=== PATIENT | female | born 1955 | race African-American/Black ===

== ENCOUNTER → 2018-11-09 10:57 | Outpatient (CLI) | payer OTHER, SELFPAY ==
--- NOTE | 2018-11-09 11:01 | MM_ITS ---
MM Dig screening mamm BI w/CAD CAD Screening COMPARISON: Digital mammograms with CAD 11/06/2017 and 11/04/2016 INDICATION: There is no personal or family history of breast cancer TECHNIQUE: Standard CC and MLO images were obtained. R2 CAD reviewed. FINDINGS: The breasts are composed primarily of fat with scattered fibroglandular densities throughout each breast. Due to the large size additional views of each breast were obtained. Again is a tiny asymmetric benign-appearing nodular density left breast. There is no new or suspicious lesion in either breast and there are no suspicious microcalcifications. IMPRESSION: Stable exam no suspicious lesion seen BI-RADS Category: 2 Benign Finding(s) RECOMMENDED FOLLOW-UP: 1YR - 1 YEAR FOLLOW-UP (A letter has been sent to the patient regarding results of the study.)
== END ==
PROVIDERS: PCP Family Medicine; Visit Provider Obstetrics & Gynecology
DX: Z12.31 Encounter for screening mammogram for malignant neoplasm of breast (principal)
CPT/HCPCS: 77067

== ENCOUNTER → 2019-05-28 14:06 | Outpatient (POV) | payer OTHER, SELFPAY | PROVIDERS: Visit Provider Dermatology | DX: Z00.00 Encounter for general adult medical examination without abnormal findings (principal) ==

== ENCOUNTER → 2019-11-11 09:47 | Outpatient (CLI) | payer OTHER, SELFPAY ==
--- NOTE | 2019-11-11 09:48 | MM_ITS ---
PROCEDURE: MM DIG SCREENING MAMM BI W/CAD Patient Age:64Y CLINICAL INDICATION: screening mammogram. Receives hormone shot. No new complaints. Noncontributory family history. . COMPARISON: [facility] DIG MAMM-SCREEN LOBO from 11/02/2015 [facility] DIG MAMM-SCREEN LOBO from 11/04/2016 [facility] DIG MAMM-SCREEN LOBO W/CAD from 11/06/2017 [facility] MM Dig screening mamm BI w/CAD from 11/09/2018 TECHNIQUE: Standard CC and MLO images were obtained. R2 CAD reviewed. Additional CC and MLO views bilateral a included so as to fully image and accommodate the entire breast-due to the generous volume breast bilaterally the the the of the who FINDINGS: Large volume low-density breasts bilateral.. The low-density breast with generalized fatty replacement; minimal residual fibroglandular elements. No significant change. No dominant mass or suspicious densities period. No suspicious calcifications no new areas of concern. IMPRESSION: Stable bilateral mammogram Bilateral follow-up 1 year Diffuse low-density large volume breast with diffuse fatty replacement. BI-RAD Category: 1 Negative FOLLOW-UP: 1YR 1 Year Follow-up (A letter has been sent to the patient regarding results of the study.) Dictated by: Isaías Bush MD 11/14/2019 08:18 Electronically signed by Isaías Bush MD in [place] 11/14/2019 08:18
== END ==
PROVIDERS: PCP Family Medicine; Visit Provider Obstetrics & Gynecology
DX: Z12.31 Encounter for screening mammogram for malignant neoplasm of breast (principal)
CPT/HCPCS: 77067

== ENCOUNTER → 2020-09-15 10:58 | Outpatient (CLI) | payer MEDICARE, SELFPAY ==
--- NOTE | 2020-09-15 11:06 | FL_ITS ---
PROCEDURE: FL BARIUM SWALLOW CLINICAL INDICATION: DIFFICULTY IN SWALLOWING COMPARISON: No exams were available for comparison TECHNIQUE: In the upright position the patient was observed to swallow barium in both the AP and lateral view. The cervical esophagus was examined under fluoroscopy with images obtained. The patient was then placed prone in the right anterior oblique position and was observed to swallow barium with Valsalva technique . FLUOROSCOPY TIME: 1 minutes and 30 seconds FINDINGS: There was no evidence of aspiration. There was normal peristalsis. Anterior osteophytes are present at C4-C5 and C6 causing some mild posterior indentation upon the esophagus. There is a small hiatal hernia. No annular constricting lesions are evident. There is some mucosal irregularity of the distal aspect of the esophagus which could be due to mild ulceration. Upper endoscopy may confirm. IMPRESSION: 1. Mild indentation upon the cervical esophagus posteriorly by cervical osteophytes. 2. Small hiatal hernia. 3. Mild mucosal irregularity of the distal esophagus possibly due to small ulcerations. Upper endoscopy may confirm. Follow-up suggested Dictated by: Rush Pablo MD 09/16/2020 10:24 Rush Pablo MD in [place] 09/16/2020 10:24
== END ==
PROVIDERS: PCP Family Medicine; Visit Provider Family Medicine
DX: R13.10 Dysphagia, unspecified (principal)
CPT/HCPCS: 74220

== ENCOUNTER → 2020-11-19 08:16 | Outpatient (CLI) | payer MEDICARE, SELFPAY ==
--- NOTE | 2020-11-19 08:16 | MM_ITS ---
PROCEDURE: MM DIG SCREENING MAMM BI W/CAD Digital Breast Tomosynthesis Included CLINICAL INDICATION: Routine Screening Mammogram There is no personal or family history of breast cancer. COMPARISON: MG [facility] DIG MAMM-SCREEN LOBO W/CAD from 11/06/2017 MG [facility] MM Dig screening mamm BI w/CAD from 11/09/2018 MG MM DIG SCREENING MAMM BI W/CAD from 11/11/2019 TECHNIQUE: Standard CC and MLO images and 3D Tomosynthesis was obtained. R2 CAD reviewed. FINDINGS: Scattered fibroglandular densities are seen throughout both breasts. There is a benign-appearing calcification right breast. There is no suspicious lesion in either breast and no suspicious microcalcifications. IMPRESSION: Fibrofatty parenchyma with no suspicious lesions seen BI-RAD Category: 2 Benign Finding(s) FOLLOW-UP: 1YR 1 Year Follow-up (A letter has been sent to the patient regarding results of the study.) Dictated by: Dr. Faustino Bright MD 11/21/2020 09:47 Dr. Faustino Bright MD in [place] 11/21/2020 09:47
== END ==
PROVIDERS: PCP Family Medicine; Visit Provider Obstetrics & Gynecology
DX: Z12.31 Encounter for screening mammogram for malignant neoplasm of breast (principal)
CPT/HCPCS: 77063; 77067

== ENCOUNTER → 2021-06-30 12:43 | Outpatient (CLI) | payer MEDICARE, SELFPAY ==
--- NOTE | 2021-06-30 12:47 | MR_ITS ---
PROCEDURE: MR HEAD/BRAIN WO/W CON CLINICAL INDICATION: HX OF SEIZURES COMPARISON: No exams were available for comparison TECHNIQUE: Routine multiplanar multi echo sequences are performed without and with gadolinium enhancement. FINDINGS: No restricted diffusion. No evidence of acute infarction. No midline shift mass effect, intracranial hemorrhage, or hydrocephalus. The cerebellopontine angles, cerebellum, and brainstem have an unremarkable appearance. No enhancing lesions. No abnormal white matter signal intensity. The hippocampal gyri are unremarkable in the temporal horns are symmetric. The pituitary, optic chiasm, corpus callosum, and craniocervical junction have an unremarkable appearance. Small amount fluid is present in the right mastoid sinus with a few air-fluid levels in the air cells. There is mucosal thickening along the floor the right maxillary sinus and to lesser degree on the left. No paranasal sinus air-fluid levels. There is mild right ethmoid mucosal thickening with an opacified right frontal ethmoid air cell. Unremarkable appearing orbits. IMPRESSION: Negative MRI of the brain without and with contrast. Right mastoid and mild paranasal sinus disease Dictated by: Rush Pablo MD 07/01/2021 09:38 Rush Pablo MD in [place] 07/01/2021 09:38
== END ==
PROVIDERS: PCP Family Medicine; Visit Provider Psychiatry & Neurology Neurology
DX: G40.209 Localization-related (focal) (partial) symptomatic epilepsy and epileptic syndromes with complex partial seizures, not intractable, without status epilepticus (principal)
CPT/HCPCS: 70553

== ENCOUNTER 2021-11-14 13:58 | Emergency (ER) | payer MEDICARE, SELFPAY ==
[2021-11-14] VITALS (7 sets, daily range): BP systolic 130–150; BP diastolic 88–107; PULSE 74–96; RESP 14–17; TEMP 37.2–37.4; O2SAT 93–98; BMI 36.6
--- NOTE | 2021-11-14 14:30 | XR_ITS ---
PROCEDURE INFORMATION: Exam: XR Chest Exam date and time: 11/14/2021 2:30 PM Age: 66 years old Clinical indication: Shortness of breath; Additional info: Chest pain, covid test pending TECHNIQUE: Imaging protocol: XR of the chest. Views: 1 view. COMPARISON: CR CXR CHEST(2 VIEWS-NOT PORTABLE) 07/30/2016 1:04 PM FINDINGS: Lungs: See Pleural spaces finding. Pleural spaces: Low lung volumes are present without large pleural effusions or consolidations. Heart/Mediastinum: Unremarkable. No cardiomegaly. Bones/joints: Unremarkable. IMPRESSION: No acute findings.
--- NOTE | 2021-11-14 14:31 | CT_ITS ---
PROCEDURE INFORMATION: Exam: CT Head Without Contrast Exam date and time: 11/14/2021 2:31 PM Age: 66 years old Clinical indication: Other: Headache, covid symptoms TECHNIQUE: Imaging protocol: Computed tomography of the head without contrast. Radiation optimization: All CT scans at this facility use at least one of these dose optimization techniques: automated exposure control; mA and/or kV adjustment per patient size (includes targeted exams where dose is matched to clinical indication); or iterative reconstruction. COMPARISON: MR HEAD/BRAIN WO/W CON 06/30/2021 1:27 PM FINDINGS: Brain: Normal. No hemorrhage. Unremarkable white matter. No mass effect. Partially empty sella incidentally noted. Cerebral ventricles: No ventriculomegaly. Paranasal sinuses: Mild ethmoid mucosal thickening is present. Mastoid air cells: Visualized mastoid air cells are well aerated. Bones/joints: Unremarkable. No acute fracture. Soft tissues: Unremarkable. IMPRESSION: No acute intracranial abnormality.
--- NOTE | 2021-11-14 14:37 | ECG_ITS ---
APPROVED REPORT Exam: Resting ECG HR:78 bpm ECG Measurements Heart Rate 78 AXES WA 170 P 51 QRSd 94 QRS -11 QT 374 T 19 QTc 426 Conclusion Normal sinus rhythm Possible Anterior infarct, age undetermined Abnormal ECG Electronically signed by : Bj Cason MD 11/17/2021 13:29:14
--- NOTE | 2021-11-14 14:50 | PC.NURSE ---
Pt returned from rad
[2021-11-14 15:39] LABS: Lactic Acid 0.7 mmol/L (0.7-2.1)
[2021-11-14 15:46] LABS: Basophils % 1.6 % (0.1-2.0); Eosinophils % 0.3 % (0.1-12.0); Hematocrit 37.3 % (37.0-47.0); Hemoglobin 12.3 g/dL (12.2-16.2); Lymphocytes # 0.4 K/mm3 (0.7-4.5); Lymphocytes % 16.3 % (10-50); Mean Corpuscular HGB Conc 33.1 g/dL (31.8-35.4); Mean Corpuscular Hemoglobin 29.4 pg (27.0-31.2); Mean Corpuscular Volume 88.9 fl (81-99); Mean Platelet Volume 7.4 fl (7.4-10.4); Monocytes # 0.2 K/mm3 (0.1-1.0); Monocytes % 6.4 % (1.7-9.3); Neutrophils # 1.9 K/mm3 (1.8-7.8); Neutrophils % 75.3 % (37.0-80.0); Platelet Count 267 K/mm3 (142-424); Red Cell Distribution Width 13.1 % (11.5-17.5); White Blood Count 2.5 K/mm3 (4.8-10.8)
[2021-11-14 15:49] LABS: Chloride 95 mmol/L (98-107); Potassium 3.7 mmoL/L (3.5-5.1); Sodium 133 mmol/L (136-145)
[2021-11-14 15:51] LABS: Blood Urea Nitrogen 17 mg/dl (7-17); Creatinine Clearance Estimated 90 mL/min (50-200); Estimated Glomerular Filt Rate 63 ml/min (>60); GFR (African American) 76 ML/MIN (>60); Lipase 66 U/L (23-300)
[2021-11-14 15:52] LABS: Alanine Aminotransferase 32 U/L (12-78); Albumin Level 4.4 g/dl (3.5-5.0); Albumin/Globulin Ratio 1.5 (1.1-1.8); Alkaline Phosphatase 69 U/L (38-126); Anion Gap 15.7 mEq/L (5-15); Aspartate Amino Transferase 53 U/L (14-36); Bilirubin,Total 0.3 mg/dl (0.2-1.3); Calcium 8.5 mg/dl (8.4-10.2); Carbon Dioxide 26 mmol/L (22.0-30.0); Glucose 97 mg/dl (74-100); Total Protein,Serum 7.4 g/dl (6.3-8.2)
--- NOTE | 2021-11-14 16:02 | PC.NURSE ---
Pt is sleeping in room comfortably
[2021-11-14 16:05] LABS: Troponin I < 0.01 ng/ml (0.00-0.034)
[2021-11-14 16:24] LABS: Influenza A, PCR Not Detected (NotDetected); Influenza B, PCR Not Detected (NotDetected)
[2021-11-14 16:49] LABS: Coronavirus 19, PCR Detected (NotDetected)
[2021-11-14 18:47] LABS: Troponin I < 0.01 ng/ml (0.00-0.034)
--- NOTE | 2021-11-14 18:58 | HMH.EDGENADL ---
ED Disposition Clinical Impression: COVID-19 Disposition: Home, Self-Care Condition on Discharge: Fair Instructions: DI for COVID-19 (Suspected or Confirmed ) Referrals: Joann Waterman MD [Primary Care Provider] - - Critical Care Critical Care Time: No Attestation: On 11/14/21, the high probability of a clinically significant, sudden or life threatening deterioration of the following system(s) required my full and direct attention, intervention and personal management. The time I documented below is in addition to time spent performing reported procedures but includes the following listed in this critical care notation. Medical Decision Making - Medical Records Medical records reviewed: Yes: I reviewed the patient's medical records. - Bryant Inquiry Pt receiving controlled substance: No Bryant was queried for this patient: No Vital Signs: 11/14/21 13:59 11/14/21 14:00 11/14/21 15:00 Temperature 99.4 F Temperature Source Oral Pulse Rate 92 H 96 H Pulse Rate [Right] 79 Respiratory Rate 16 16 15 Blood Pressure 150/92 H 143/93 H Blood Pressure [Right Arm] 150/92 H Blood Pressure Mean [Right Arm] 111 Blood Pressure Source Blood Pressure Source [Right Arm] Automatic Cuff Blood Pressure Position Blood Pressure Position [Right Arm] Sitting 02 Sat by Pulse Oximetry 96 97 96 Oxygen Delivery Method Room Air 11/14/21 16:00 11/14/21 17:05 11/14/21 18:54 Temperature Temperature Source Pulse Rate 90 89 78 Pulse Rate [Right] Respiratory Rate 16 17 14 Blood Pressure 139/88 130/107 H 147/99 H Blood Pressure [Right Arm] Blood Pressure Mean [Right Arm] Blood Pressure Source Blood Pressure Source [Right Arm] Blood Pressure Position Blood Pressure Position [Right Arm] 02 Sat by Pulse Oximetry 93 L 97 95 Oxygen Delivery Method 11/14/21 19:10 Temperature 99.0 F Temperature Source Oral Pulse Rate 74 Pulse Rate [Right] Respiratory Rate 16 Blood Pressure 146/89 H Blood Pressure [Right Arm] Blood Pressure Mean [Right Arm] Blood Pressure Source Automatic Cuff Blood Pressure Source [Right Arm] Blood Pressure Position Sitting Blood Pressure Position [Right Arm] 02 Sat by Pulse Oximetry Oxygen Delivery Method Room Air - Lab Data Lab results reviewed: Yes: I reviewed the patient's lab results. Lab Results 11/14/21 14:31: SARS-CoV-2 (PCR) Detected A, Influenza A Untype (PCR) Not detected, Influenza Type B (PCR) Not detected 11/14/21 15:15: WBC 2.5 L, RBC 4.20, Hgb 12.3, Hct 37.3, MCV 88.9, MCH 29.4, MCHC 33.1, RDW 13.1, Plt Count 267, MPV 7.4, Neut % (Auto) 75.3, Lymph % (Auto) 16.3, [place] % (Auto) 6.4, Eos % (Auto) 0.3, Baso % (Auto) 1.6, Neut # (Auto) 1.9, Lymph # (Auto) 0.4 L, [place] # (Auto) 0.2, Eos # (Auto) 0.0, Baso # (Auto) 0.0 11/14/21 15:15: Sodium 133 L, Potassium 3.7, Chloride 95 L, Carbon Dioxide 26, Anion Gap 15.7 H, BUN 17, Creatinine 0.90, Estimated Creat Clear 90, Estimated GFR 63, Est GFR ( Amer) 76, Glucose 97, Calcium 8.5, Total Bilirubin 0.3, AST 53 H, ALT 32, Alkaline Phosphatase 69, Troponin I < 0.01, Total Protein 7.4, Albumin 4.4, Globulin 3.0, Albumin/Globulin Ratio 1.5 11/14/21 15:15: Lactate 0.7 11/14/21 15:15: Lipase 66 11/14/21 18:04: Troponin I < 0.01 Result diagrams: 11/14/21 15:15 11/14/21 15:15 Orders (Tests/Meds): ED MEDICATIONS Discontinued Medications Generic Name Dose Route Start Last Admin Trade Name Freq PRN Reason Stop Dose Admin Lactated Ringer's 1,000 mls @ 999 mls/hr 11/14/21 14:45 11/14/21 15:11 Lactated Ringer's 1000 Ml Bag IV 11/14/21 15:45 999 mls/hr .Q1H1M IVAN Administration Prochlorperazine Edisylate 5 mg 11/14/21 14:31 11/14/21 15:11 Prochlorperazine 10mg/2ml Vial IV 11/14/21 14:32 5 mg ONCE ONE Administration Medical Decision Narrative: Patient is a 66-year-old female with past medical history of migraines, seizures, coronary artery disease presenting to
== END 2021-11-14 19:12 | disposition home or self-care (01) ==
PROVIDERS: Emergency Provider Emergency Medicine; PCP Family Medicine
DX: U07.1 COVID-19 (principal); K21.9 Gastro-esophageal reflux disease without esophagitis; I10 Essential (primary) hypertension; J45.909 Unspecified asthma, uncomplicated; Z79.899 Other long term (current) drug therapy
CPT/HCPCS: 70450; 71045; 80053; 83605; 83690; 84484; 85025; 93005; 96365; 96375; 99283; C9803; U0003; U0005

== ENCOUNTER → 2022-03-09 10:50 | Outpatient (CLI) | payer MEDICARE, SELFPAY ==
--- NOTE | 2022-03-09 11:01 | MM_ITS ---
PROCEDURE INFORMATION: Exam: MG Bilateral Screening 3D Mammography Exam date and time: 03/09/2022 11:05 AM Age: 66 years old Clinical indication: Screening mammogram. TECHNIQUE: Imaging protocol: Bilateral Screening tomosynthesis and 2D mammography including computer-aided detection (CAD) when performed. COMPARISON: 1. MG MM DIG SCREENING MAMM BI W/CAD 11/19/2020 8:21 AM 2. MG MM DIG SCREENING MAMM BI W/CAD 11/11/2019 10:07 AM 3. MG [facility] MM Dig screening mamm BI w/CAD 11/09/2018 11:10 AM 4. MG [facility] DIG MAMM-SCREEN LOBO W/CAD 11/06/2017 10:25 AM FINDINGS: MAMMOGRAPHY: Breast composition: There are scattered areas of fibroglandular density. Mass: None. Architectural distortion: No new or suspicious architectural distortion. Calcifications: No new or suspicious calcifications are present Asymmetric density: No new or suspicious asymmetric density is present Skin thickening: None. Axillary adenopathy: None. IMPRESSION: No mammographic evidence of malignancy. Recommend annual screening mammography unless otherwise clinically indicated. ASSESSMENT: BI-RADS category 1: Negative
== END ==
PROVIDERS: PCP Family Medicine; Visit Provider Obstetrics & Gynecology
DX: Z12.31 Encounter for screening mammogram for malignant neoplasm of breast (principal)
CPT/HCPCS: 77063; 77067

== ENCOUNTER → 2022-06-15 15:28 | Outpatient (CLI) | payer MEDICARE, SELFPAY ==
[2022-06-15 18:07] LABS: 25-OH Vitamin D, Total 55.7 ng/mL (30-100)
== END ==
PROVIDERS: PCP Family Medicine; Visit Provider Nurse Practitioner
DX: E55.9 Vitamin D deficiency, unspecified (principal)
CPT/HCPCS: 82306

== ENCOUNTER → 2023-06-14 15:14 | Outpatient (CLI) | payer MEDICARE, SELFPAY ==
--- NOTE | 2023-06-14 15:21 | XR_ITS ---
FINAL REPORT TECHNIQUE: 5 views CLINICAL HISTORY: LOW BACK PAIN, recent fall COMPARISON: None FINDINGS: There is no fracture present. There is grade 1 anterolisthesis of L4 on L5. There is mild degenerative disc disease and facet osteoarthropathy primarily in the lower lumbar spine. IMPRESSION: No acute process. Grade 1 anterolisthesis of L4 on L5 and degenerative change as described. Reviewed, Interpreted and Dictated by Man Marinelli MD Transcribed by Milagros Johnson Authenticated and [facility]
== END ==
PROVIDERS: PCP Family Medicine; Visit Provider Family Medicine
DX: M54.50 Low back pain, unspecified (principal)
CPT/HCPCS: 72110

== ENCOUNTER → 2023-10-26 07:41 | Outpatient (CLI) | payer MEDICARE, SELFPAY ==
--- NOTE | 2023-10-26 07:53 | MM_ITS ---
PROCEDURE INFORMATION: Exam: MG Bilateral Screening 3D Mammography Exam date and time: 10/26/2023 7:52 AM Age: 68 years old Clinical indication: Screening. No family history of breast cancer. TECHNIQUE: Imaging protocol: Bilateral Screening tomosynthesis and 2D mammography including computer-aided detection (CAD) when performed. COMPARISON: 1. MG MM DIG SCREENING MAMM BI W/CAD 03/09/2022 11:05 AM 2. MG MM DIG SCREENING MAMM BI W/CAD 11/19/2020 8:21 AM 3. MG MM DIG SCREENING MAMM BI W/CAD 11/11/2019 10:07 AM 4. MG [facility] MM Dig screening mamm BI w/CAD 11/09/2018 11:10 AM FINDINGS: MAMMOGRAPHY: Breast composition: There are scattered areas of fibroglandular density. Mass: None. Architectural distortion: None. Calcifications: No suspicious calcifications. Asymmetric density: No developing asymmetry. Skin thickening: None. Axillary adenopathy: None. IMPRESSION: No mammographic evidence of malignancy. Annual screening is recommended unless otherwise clinically indicated. ASSESSMENT: BI-RADS Category 1: Negative
== END ==
PROVIDERS: PCP Family Medicine; Visit Provider Family Medicine
DX: Z12.31 Encounter for screening mammogram for malignant neoplasm of breast (principal)
CPT/HCPCS: 77063; 77067

== ENCOUNTER 2024-02-02 08:08 | Outpatient (CLI) | payer MEDICARE, SELFPAY ==
--- NOTE | 2024-02-02 08:11 | XR_ITS ---
FINAL REPORT CLINICAL HISTORY: screening for osteoporosis in menopausal patient COMPARISON: None FINDINGS: Using L1-4, the bone mineral density of the spine is 1.379 g/cm2, corresponding to T-score of 3.0 which is within normal limits. Using the left hip, the bone mineral density of the femoral neck is 0.925 g/cm2, corresponding to a T-score of 0.7, within normal limits. Using the right hip, the bone mineral density of the femoral neck is 1.053 g/cm2, corresponding to a T-score of 1.8, within normal limits. FRAX not reported because all T-scores at or above -1.0. NOTE: T-score: Standard deviation compared with peak bone mass of young adult mean. *Following the recommendations of the International Society of Bone densitometry, classification of hip BMD is based on the lower of two T-scores; total hip or femoral neck. IMPRESSION: Normal bone mineral density of the lumbar spine and hips. Reviewed, Interpreted and Dictated by Tez Merida III, MD Transcribed by Clau Emmanuel Authenticated and [facility]
== END 2024-02-02 23:59 ==
PROVIDERS: PCP Family Medicine; Visit Provider Obstetrics & Gynecology
DX: Z78.0 Asymptomatic menopausal state (principal)
CPT/HCPCS: 77080

== ENCOUNTER 2024-03-26 10:36 | Day surgery (SDC) | payer MEDICARE, SELFPAY ==
[2024-03-25 10:16] VITALS: BMI 37.3
[2024-03-26] VITALS (9 sets, daily range): BP systolic 116–138; BP diastolic 63–92; PULSE 61–89; RESP 16–18; TEMP 36.2; O2SAT 96–99
--- NOTE | 2024-03-26 06:10 | SUR.PREOP ---
Late entry for 03/25/24 1300: Pre-op phone call performed and pt said that she was planning to come on the [facility] bus. Instructed pt that she needed to have someone here for/with her in order to be able to do her procedure. Pt said that she would try to find someone. Informed pt to call us if unable to find someone. Verbalized understanding.
[2024-03-26] MEDS: LACTATED RINGERS 1000ML 1,000 ML 25 ML IV (10:54)
--- NOTE | 2024-03-26 10:54 | EXP.ANES.CKL ---
[facility] Disclaimer: The information contained in this section may have been updated after the patient was seen, as this information can be updated by other users. Medical History (Updated 03/25/24 @ 10:10 by Clau Austin RN) Migraine Eczema COPD (chronic obstructive pulmonary disease) Lymphadenopathy Chronic fungal laryngitis GERD (gastroesophageal reflux disease) Hoarseness Enlarged tonsils Vasomotor symptoms due to menopause Hormone replacement therapy (HRT) Surgical History (Updated 03/25/24 @ 10:10 by Clau Austin RN) History of hysterectomy History of bladder surgery Hx of cholecystectomy History of hysterectomy with bilateral oophorectomy Family History Other Cancer Diabetes Social History (Updated 03/25/24 @ 10:10 by Clau Austin RN) Smoking Status: Never smoker alcohol intake: never substance use type: denies use current occupational status: retired Travel in the last 8 weeks: None [facility] Anesthesia Checklist Patient Identification Patient Identification: Arm Band and Verbal (Name & ) Structural Data Admitted From: Home Planned Operative Procedure/s: Colonoscopy Consent for Planned Operative Procedure(s) Verified: Yes Verified Documents: Surgical Consent and History and Physical NPO Status Verified Time NPO: 05:30 Chart Verification Results Verified: CBC, BMP, ECG and Chest Xray Additional verifications Patient : No Anesthesia Reactions: No Cardiovascular Assessment Heart Sounds: S1 & S2 Pulse Rhythm: Irregular Peripheral Edema: No Airway Assessment Mallampati Score:: Class II C-Spine Mobility Assessed: Yes (Limited extension) TMJ Mobility Assessed: Yes Dentition: Good Dentition (Nothing loose per pt.) Neurological Assessment Level of Consciousness: Awake, Alert, Appropriate and Follows Commands Hx Seizures: Yes (Last Sz 4 years ago) Numbness or tingling in extremities: No Anesthesia Plan Anesthesia Risk discussed: Yes Anesthesia Plan: Verified ASA Class: III Anesthesia Type: MAC
--- NOTE | 2024-03-26 11:59 | P.PCN_ITS ---
Procedure: Date: 03/26/24 Patient Date of :: 1955 Procedure Performed:: Colonoscopy with polypectomy Indications:: History of colon polyps (remote) Performing Provider:: James Cortez MD Referring Provider:: . Sedation:: Monitored anesthesia care Procedure:: After informed consent was obtained the patient was taken to the endoscopy suite. Sedation ensued after the patient was transferred to the left lateral decubitus position. Pulse, blood pressure, and oxygen saturation were monitored throughout the procedure. Digital rectal exam revealed no significant abnormality. The colonoscope was placed in position. The entire colon was evaluated. The colonoscope was carefully removed and the patient was transferred to recovery in stable condition. Please see findings and specimens below for detail. Findings:: Bowel preparation moderate Scattered diverticulosis Profound sigmoid tortuosity Fairly severe spasticity/lack of relaxation Complex polyps (see specimens) Specimens:: Complex lobulated sessile proximal right colon polyp (cold snare) Complex lobulated sessile polyp at 70 cm (cold snare) Adjacent complex lobulated polyps between 45/50 cm (cold snare) Recommendations:: Timing of repeat colonoscopy is pending pathology but will likely be between 2-3 years secondary to moderate bowel preparation, profound tortuosity, and spasticity/lack of relaxation. Consider barium enema in near future secondary to profound sigmoid tortuosity an d spasticity/lack of relaxation. Complications:: No immediate Estimated blood obtained (mL): 1 Colonoscopy Component Colonoscopy Component Was a colonoscopy performed during today's procedure?: Yes Recommended follow up colonoscopy of at least 10 years?: No If no, follow up colonoscopy recommended in ___ years?: (See above) Reason for not recommending >/= 10 yr follow-up interval?: (See above)
== END 2024-03-26 13:40 | disposition home or self-care (01) ==
PROVIDERS: PCP Family Medicine; Visit Provider Surgery
PROC: 0DJD8ZZ Inspection of Lower Intestinal Tract, Via Natural or Artificial Opening Endoscopic (ICD-10-PCS; CPT 45385; principal; 2024-03-26 11:30)
DX: Z12.11 Encounter for screening for malignant neoplasm of colon (principal); Z86.010 Personal history of colon polyps; K57.30 Diverticulosis of large intestine without perforation or abscess without bleeding; K56.2 Volvulus; D12.2 Benign neoplasm of ascending colon; D12.4 Benign neoplasm of descending colon; D12.5 Benign neoplasm of sigmoid colon
CPT/HCPCS: 45385

== ENCOUNTER 2024-03-27 07:53 | Outpatient (CLI) | payer MEDICARE, SELFPAY ==
--- NOTE | 2024-03-27 08:00 | CT_ITS ---
FINAL REPORT TECHNIQUE: Thin section axial CT images with coronal and sagittal reformats were performed through the neck. This study was performed with techniques to keep radiation doses as low as reasonably achievable (ALARA). Individualized dose reduction techniques using automated exposure control or adjustment of mA and/or kV according to the patient''s size were employed. CLINICAL HISTORY: Left Sided Lymphadenopathy COMPARISON: None FINDINGS: There are multiple small bilateral neck nodes without evidence of adenopathy. Salivary glands are normal. The nasopharynx, oropharynx, hypopharynx, and larynx have an unremarkable appearance. Thyroid gland is unremarkable. There is no evidence of mass. There is mucosal thickening of the maxillary sinuses. IMPRESSION: No evidence of adenopathy. Reviewed, Interpreted and Dictated by Tez Merida III, MD Transcribed by Clau Emmanuel Authenticated and [facility]
== END 2024-03-27 23:59 | disposition home or self-care (01) ==
LOC: RAD 07:54
PROVIDERS: PCP Family Medicine; Visit Provider Nurse Practitioner
DX: R59.1 Generalized enlarged lymph nodes (principal)
CPT/HCPCS: 70490

== ENCOUNTER 2024-04-24 22:26 | Emergency (ER) | payer MEDICARE, SELFPAY ==
[2024-04-24 22:28] VITALS: BP 187/96; PULSE 76; RESP 20; TEMP 36.6; O2SAT 96; BMI 36.1
--- NOTE | 2024-04-24 23:04 | ED_ITS ---
Discharge Plan Disposition Patient Disposition: Home, Self-Care Prescriptions Prescriptions: No Action ergocalciferol (vitamin D2) 1,250 mcg (50,000 unit) capsule 50,000 unit PO DAILY Patient Comments: TAKE 1 CAPSULE BY MOUTH ONE TIME PER WEEK albuterol sulfate 90 mcg/actuation HFA aerosol inhaler 1 puff INHALATION NEEDED PRN (Reason: soa) Vimpat 150 mg tablet 150 mg PO BID omeprazole 40 mg capsule,delayed release(DR/EC) 40 mg PO DAILY pravastatin 20 mg tablet 20 mg PO DAILY levetiracetam 750 mg tablet See Rx Instructions PO .COMPLEX Patient Comments: 1125 MG PO QAM AND NOON, AND ONLY 750MG AT NIGHT; Rx Instructions: 1125 MG PO QAM AND NOON, AND ONLY 750MG AT NIGHT; estradiol valerate 20 mg/mL oil 20 mg IM Q4W montelukast 10 mg tablet 10 mg PO DAILY Patient Comments: TAKE 1 TABLET BY MOUTH EVERY DAY levocetirizine 5 mg tablet 5 mg PO DAILY multivitamin Tablet 1 tab PO DAILY mecobalamin (vitamin B12) 1,000 mcg tablet,disintegrating 1,000 mcg SUBLINGUAL HS Rx Instructions: place tablet under tongue and allow to dissolve for at least30 secs before swallowing lisinopril 20 mg tablet 20 mg PO DAILY potassium chloride 20 mEq tablet,ER particles/crystals 20 meq PO DAILY famotidine 20 mg tablet See Rx Instructions .ROUTE .COMPLEX Qty: 180 0RF Dose Instruction: TAKE 2 TABLETS BY MOUTH EVERY NIGHT AT BEDTIME Rx Instructions: TAKE 2 TABLETS BY MOUTH EVERY NIGHT AT BEDTIME Referrals Follow up/Referrals: Joann Waterman MD [Primary Care Provider] - See instructions Activity Restrictions/Add. Instructions Additional Instructions/Restrictions: Please use warm salt water gargles over the next 24 hours. Keep your throat moist with liquids. If in 48 hours you still have significant symptoms present to your family doctor, ear nose and throat doctor, or here for continued evaluation. Clinical Impressions Clinical Impression: Pill dysphagia Discharge ED Provider: Beto Feliz General Adult HPI General Chief complaint: Upper Respiratory Infection Stated complaint: Throat swollen cutting air off Time Seen by Provider: 04/24/24 22:39 Mode of Arrival: Ambulatory Source of Information: Patient Limitations: No Limitations Description of Symptoms (Recalled from ER Triage Doc. by RN): pt swallowed a vimpat pill at 2215 and she states it feels like its stuck in her throat, she has tried to swallow water and bread. pt saw pcp today for regular check up and then she noticed later today that she has a swollen tonsil and ear pain History of Present Illness HPI narrative: Patient is a 68-year-old female with past medical history of laryngitis, also on lacosamide and Keppra, chronically enlarged tonsils who presents emergency department for evaluation of pill foreign body. Patient swallowed her Keppra an hour prior to arrival and feels as if it is stuck in her left throat. She has chronically enlarged tonsils that she states are not significantly worse than normal but have waxed and waned for years. No sore throat. No other acute complaints at this time. Related Data Home Medications Medication Instructions Recorded Confirmed levetiracetam 750 mg tablet See Rx Instructions PO .COMPLEX 07/02/18 04/11/24 omeprazole 40 mg capsule,delayed 40 mg PO DAILY 07/02/18 04/11/24 release pravastatin 20 mg tablet 20 mg PO DAILY 07/02/18 04/11/24 albuterol sulfate 90 mcg/actuation 1 puff inhalation NEEDED PRN soa 11/08/19 04/11/24 aerosol inhaler montelukast 10 mg tablet 10 mg PO DAILY 01/02/20 04/11/24 levocetirizine 5 mg tablet 5 mg PO DAILY 05/07/20 04/11/24 ergocalciferol (vitamin D2) 1,250 50,000 unit PO DAILY 07/06/20 04/11/24 mcg (50,000 unit) capsule lacosamide 150 mg tablet (Vimpat) 150 mg PO BID 10/11/21 04/11/24 mecobalamin (vitamin B12) 1,000 1,000 mcg sublingual HS 02/25/22 04/11/24 mcg disintegrating tablet,sublingual multivitamin 1 tab PO DAILY 02/25/22 04/11/24 lisinopril 20 mg tablet 20 mg PO DAILY 03/02/23 04/11/24 estradiol valerate 20 mg/mL 20 mg IM Q4W 08/24/23 04/11/24 intramuscular oil potassium chloride 20 mEq 20 meq PO DAILY 12/22/23 04/11/24 tablet,extended release(part/cryst) Previous Rx's Medication Instructions Recorded famotidine 20 mg tablet See Rx Instructions .Route 03/12/24 .COMPLEX #180 tabs Allergies Allergy/AdvReac Type Severity Reaction Status Date / Time No Known Allergies Allergy Verified 04/11/24 09:03 [facility] Disclaimer: The information contained in this section may have been updated after the patient was seen, as this information can be updated by other users. Medical History Migraine Eczema COPD (chronic obstructive pulmonary disease) Lymphadenopathy Chronic fungal laryngitis GERD (gastroesophageal reflux disease) Hoarseness Enlarged tonsils Vasomotor symptoms due to menopause Hormone replacement therapy (HRT) Surgical History History of colonoscopy History of hysterectomy History of bladder surgery Hx of cholecystectomy History of hysterectomy with bilateral oophorectomy Family History Other Cancer Diabetes Social History Smoking Status: Never smoker alcohol intake: never substance use type: denies use current occupational status: retired Travel in the last 8 weeks: None ROS Obtained: Yes Systems reviewed as appropriate & no additional complaints except as documented Physical Exam General General appearance: alert and in no apparent distress Head Head exam: atraumatic and normocephalic Eye Eye exam: Present PERRL ENT ENT exam: Present mucous membranes moist and other (Normal left TM); Absent normal oropharynx (Symmetrically enlarged palate teen tonsils) Neck Neck exam: Present normal inspection Chest Chest inspection: Present normal inspection and symmetric chest wall rise Respiratory Respiratory exam: Absent respiratory distress Cardiovascular Cardiovascular exam: Present regular rate and normal rhythm Abdominal Exam Abdominal exam: Present soft; Absent tenderness Extremities Exam Extremities exam: Present normal inspection Neurological Exam Neurological exam: Present alert Psychiatric Psychiatric exam: Present normal affect Skin Skin exam: Present warm and dry Medical Decision Making Bryant Inquiry Pt receiving controlled substance: No Vital Signs: 04/24/24 22:28 Temperature 97.8 F Temperature Source Oral Pulse Rate [Right Radial] 76 Respiratory Rate 20 Blood Pressure [Right Arm] 187/96 H Blood Pressure Mean [Right Arm] 126 02 Sat by Pulse Oximetry 96 Oxygen Delivery Method Room Air Medical Decision Narrative: In summary patient is a 68-year-old female past medical history described above presents emergency department for evaluation of pill foreign body. Patient is hemodynamically stable nontoxic-appearing upon arrival, afebrile. She is chronically enlarged bilateral symmetric palate teen tonsils are no worse than normal, no acute sore throat. No foreign bodies identified on my exam. Given that patient has a pill possibly lodged in her esophagus regardless it is enteric-coated and will dissolve over the next 24 hours. She has no signs of airway or complete esophageal obstruction is able to swallow at bedside. Given this patient was instructed to take salt water gargles, and will monitor over the next 24 to 48 hours to see if symptoms improve. If they do not she will continue to follow-up on an outpatient basis or return here if new or worsening symptoms. Critical Care Critical Care Time Critical Care Time: No
[2024-04-24 23:15] VITALS: BP 187/96; PULSE 76; RESP 20; TEMP 36.6; O2SAT 96
== END 2024-04-24 23:17 | disposition home or self-care (01) ==
PROVIDERS: Emergency Provider Emergency Medicine; PCP Family Medicine
DX: R13.12 Dysphagia, oropharyngeal phase (principal)
CPT/HCPCS: 99282

== ENCOUNTER 2024-05-03 09:05 | Outpatient (CLI) | payer MEDICARE, SELFPAY ==
--- NOTE | 2024-05-03 09:05 | FL_ITS ---
FINAL REPORT CLINICAL HISTORY: dysphagia 1068.65 dap 1.12 fluoro time FINDINGS: ESOPHAGRAM HISTORY: Dysphagia. PROCEDURE: The patient ingested barium. Effervescent crystals were also administered. Fluoroscopic spot films were obtained. Number of images: 13 Fluoro time: 1 minute 12 seconds DAP: 1068.65 uGym2. FINDINGS: The esophagus is normal. There is a small sliding-type hiatal hernia. A 13 mm barium tablet passes through the esophagus and stomach without delay. There is no gastroesophageal reflux. Peristalsis is normal. IMPRESSION: Small sliding-type hiatal hernia. Films reviewed , interpreted and dictated by Dr. Merida. Transcribed by Isaías Alfaro PA-C. Reviewed, Interpreted and Dictated by Tez Merida III, MD Transcribed by DOTTIE Garcia Authenticated and [facility]
[2024-05-03] MEDS: E-Z-GASII EFFERVESCENT GRANULES;1PK 1 EACH PO (09:31)
[2024-05-03] MEDS: BARIUM SULFATE(E-Z-AC);750ML BOTTLE 750 ML PO (09:31)
[2024-05-03] MEDS: BARIUM SULFATE (E-Z-HD 340GM);135ML BOTTLE 135 ML PO (09:31)
== END 2024-05-03 23:59 | disposition home or self-care (01) ==
LOC: RAD 09:05
PROVIDERS: PCP Family Medicine; Visit Provider Nurse Practitioner
DX: R13.10 Dysphagia, unspecified (principal)
CPT/HCPCS: 74220

== ENCOUNTER 2024-06-14 07:41 | Outpatient (CLI) | payer MEDICARE, SELFPAY ==
--- NOTE | 2024-06-14 07:42 | FL_ITS ---
FINAL REPORT CLINICAL HISTORY: hx of colon polyps, resent colonoscopy fluoro time: 3.46 262.07mgy FINDINGS: BARIUM ENEMA HISTORY: Colon polyps. PROCEDURE: Single-contrast barium was introduced by gravity drip. 20 spot and overhead films were obtained. Fluoro time: 3 minutes 46 seconds Radiation exposure in Reference air Kerma: 262.07mGy. FINDINGS: Contract Technical Writer film is unremarkable. Retained stool limits mucosal detail. No constricting or obstructing lesions are identified to the level of the cecum. There are scattered diverticuli throughout the colon. The patient has an incompetent ileocecal valve. IMPRESSION: No constricting or obstructing lesions to the level of the cecum. scattered diverticulosis. Films reviewed , interpreted and dictated by Dr. Marinelli. Transcribed by Isaías Alfaro PA-C. Reviewed, Interpreted and Dictated by Man Marinelli MD Transcribed by DOTTIE Garcia Authenticated and [facility]
== END 2024-06-14 23:59 | disposition home or self-care (01) ==
LOC: RAD 07:42
PROVIDERS: PCP Family Medicine; Visit Provider Surgery
DX: Z86.010 Personal history of colon polyps (principal)
CPT/HCPCS: 74270

== ENCOUNTER 2024-10-08 11:12 | Outpatient (CLI) | payer MEDICARE, SELFPAY ==
--- NOTE | 2024-10-08 11:22 | XR_ITS ---
PROCEDURE INFORMATION: Exam: XR Right Knee Exam date and time: 10/08/2024 11:57 AM Age: 69 years old Clinical indication: Injury or trauma; Fall; Blunt trauma; Knee; Right; Additional info: RT knee injury. Fall. Pain in knee. TECHNIQUE: Imaging protocol: Radiologic exam of the right knee. Views: 3 views. COMPARISON: No relevant prior studies available. FINDINGS: Bones/joints: There is [id number] knee osteoarthritis consisting of medial compartment space narrowing and tricompartment osteophytosis. There is no fracture identified. Soft tissues: Normal. IMPRESSION: [id number]-[id number] right knee osteoarthritis.
== END 2024-10-08 23:59 | disposition home or self-care (01) ==
LOC: RAD 11:15
PROVIDERS: PCP Family Medicine; Visit Provider Family Medicine
DX: M25.561 Pain in right knee (principal); S89.91XA Unspecified injury of right lower leg, initial encounter
CPT/HCPCS: 73562

== ENCOUNTER 2024-10-09 12:34 | Outpatient (CLI) | payer MEDICARE, SELFPAY ==
[2024-10-09 13:41] LABS: Alanine Aminotransferase 25 U/L (12-78); Albumin Level 4.5 g/dl (3.5-5.0); Albumin/Globulin Ratio 1.8 (1.1-1.8); Alkaline Phosphatase 71 U/L (38-126); Anion Gap 9.3 mEq/L (5-15); Aspartate Amino Transferase 28 U/L (14-36); Bilirubin,Total 0.6 mg/dl (0.2-1.3); Blood Urea Nitrogen 16 mg/dl (7-17); Calcium 10.3 mg/dl (8.4-10.2); Carbon Dioxide 31 mmol/L (22.0-30.0); Chloride 104 mmol/L (98-107); Estimated Glomerular Filt Rate 62 ml/min (>60); GFR (African American) 75 ML/MIN (>60); Globulin 2.5 g/dL (1.3-3.2); Glucose 94 mg/dl (74-100); Potassium 4.3 mmoL/L (3.5-5.1); Sodium 140 mmol/L (136-145)
== END 2024-10-09 23:59 | disposition home or self-care (01) ==
LOC: LAB 12:36
PROVIDERS: PCP Family Medicine; Visit Provider Obstetrics & Gynecology
DX: Z91.89 Other specified personal risk factors, not elsewhere classified (principal)
CPT/HCPCS: 36415; 80053

== ENCOUNTER 2024-11-07 14:40 | Outpatient (CLI) | payer MEDICARE, SELFPAY ==
--- NOTE | 2024-11-07 14:43 | MR_ITS ---
FINAL REPORT TECHNIQUE: Multiplanar MR without contrast CLINICAL HISTORY: RIGHT KNEE INJURY, pain COMPARISON: None FINDINGS: Articular cartilage: Grade II chondromalacia of the patella is present. There is also severe medial compartment osteoarthritic change, with moderate change in the lateral compartment. Marrow signal: Unremarkable Joint fluid: Moderate Menisci: There is a large tear of the posterior horn of the medial meniscus at the root, with the meniscus extruded away from the bony articular surface. Ligaments: There is severe mucoid degeneration of both the anterior and posterior cruciate ligaments. The collateral ligaments are intact. Tendons: Quadriceps and patellar tendon unremarkable IMPRESSION: Advanced degenerative change of the knee as described, most severe in the medial compartment. Large tear of the posterior horn of the medial meniscus at the root of the meniscus with extrusion of the meniscus away from the bony articular surface. Reviewed, Interpreted and Dictated by Man Marinelli MD Transcribed by Milagros Johnson Authenticated and [facility]
== END 2024-11-07 23:59 | disposition home or self-care (01) ==
LOC: RAD 14:41
PROVIDERS: PCP Family Medicine; Visit Provider Family Medicine
DX: M25.561 Pain in right knee (principal); S89.91XA Unspecified injury of right lower leg, initial encounter
CPT/HCPCS: 73721

== ENCOUNTER 2024-12-03 07:47 | Outpatient (CLI) | payer MEDICARE, SELFPAY ==
--- NOTE | 2024-12-03 08:12 | MM_ITS ---
PROCEDURE INFORMATION: Exam: MG Bilateral Screening 3D Mammography Exam date and time: 12/03/2024 8:04 AM Age: 69 years old Clinical indication: Screening examination TECHNIQUE: Imaging protocol: Bilateral Screening tomosynthesis and 2D mammography including computer-aided detection (CAD) when performed. COMPARISON: 1. MG MM DIG SCREENING MAMM BI W/CAD 10/26/2023 7:52 AM 2. MG MM DIG SCREENING MAMM BI W/CAD 03/09/2022 11:05 AM FINDINGS: MAMMOGRAPHY: Breast composition: There are scattered areas of fibroglandular density. Mass: None. Architectural distortion: None. Calcifications: No suspicious calcifications. Asymmetric density: None. Skin thickening: None. Axillary adenopathy: None. IMPRESSION: No mammographic evidence of malignancy. Annual screening is recommended unless otherwise clinically indicated. ASSESSMENT: BI-RADS Category 1: Negative.
== END 2024-12-03 23:59 | disposition home or self-care (01) ==
LOC: RAD 07:48
PROVIDERS: PCP Family Medicine; Visit Provider Family Medicine
DX: Z12.31 Encounter for screening mammogram for malignant neoplasm of breast (principal)
CPT/HCPCS: 77063; 77067

== ENCOUNTER 2025-01-14 12:38 | Outpatient (CLI) | payer MEDICARE, SELFPAY ==
[2025-01-14 13:25] VITALS: PULSE 69; PULSE 74
[2025-01-14] MEDS: ALBUTEROL 0.083% 2.5 MG/3 ML NEB IH (13:25)
== END 2025-01-14 23:59 | disposition home or self-care (01) ==
LOC: RT 12:39
PROVIDERS: PCP Family Medicine; Visit Provider Internal Medicine Pulmonary Disease
DX: R06.09 Other forms of dyspnea (principal)
CPT/HCPCS: 94060; 94640; 94726; 94729; J7613

== ENCOUNTER 2025-02-17 20:25 | Emergency (ER) | payer MEDICARE, SELFPAY ==
[2025-02-17 20:28] VITALS: BP 136/88; PULSE 80; RESP 18; TEMP 36.7; O2SAT 100; BMI 35.5
--- NOTE | 2025-02-17 20:37 | ED_ITS ---
Discharge Plan Disposition Patient Disposition: Home, Self-Care Prescriptions Prescriptions: No Action albuterol sulfate 90 mcg/actuation HFA aerosol inhaler 1 puff INHALATION NEEDED PRN (Reason: soa) Vimpat 150 mg tablet 150 mg PO BID hydrochlorothiazide 12.5 mg capsule 12.5 mg PO Patient Comments: TAKE 1 CAPSULE BY MOUTH DAILY IN THE MORNING omeprazole 40 mg capsule,delayed release(DR/EC) 40 mg PO DAILY pravastatin 20 mg tablet 20 mg PO DAILY levetiracetam 750 mg tablet See Rx Instructions PO .COMPLEX Patient Comments: 1125 MG PO QAM AND NOON, AND ONLY 750MG AT NIGHT; Rx Instructions: 1125 MG PO QAM AND NOON, AND ONLY 750MG AT NIGHT; montelukast 10 mg tablet 10 mg PO DAILY Patient Comments: TAKE 1 TABLET BY MOUTH EVERY DAY multivitamin Tablet 1 tab PO DAILY mecobalamin (vitamin B12) 1,000 mcg tablet,disintegrating 1,000 mcg SUBLINGUAL HS Rx Instructions: place tablet under tongue and allow to dissolve for at least30 secs before swallowing lisinopril 20 mg tablet 20 mg PO DAILY potassium chloride 20 mEq tablet,ER particles/crystals 20 meq PO DAILY cholecalciferol (vitamin D3) 250 mcg (10,000 unit) capsule 250 mcg PO .twice weekly hydrocortisone 2.5 % cream topical Veozah 45 mg tablet 45 mg PO DAILY Qty: 30 2RF multivitamin Tablet 1 tab PO DAILY fluticasone propionate 44 mcg/actuation HFA aerosol inhaler 2 puff inhalation BID Rx Instructions: administer with spacer azelastine [Astepro Allergy] 205.5 mcg (0.15 %) spray,non-aerosol 2 spray intranasal BID Rx Instructions: administer into each nostril fluticasone furoate-vilanterol [Breo Ellipta] 200-25 mcg/dose blister with device inhalation Patient Comments: INHALE 1 PUFF BY MOUTH DAILY [employer] 750 mg-100 mg- 1.65 mg-108 mg tablet PO paroxetine HCl 10 mg tablet 10 mg PO DAILY Qty: 90.0 2RF famotidine 20 mg tablet See Rx Instructions .ROUTE .COMPLEX Qty: 180 0RF Dose Instruction: TAKE 2 TABLETS BY MOUTH EVERY NIGHT AT BEDTIME Rx Instructions: TAKE 2 TABLETS BY MOUTH EVERY NIGHT AT BEDTIME Referrals Follow up/Referrals: Joann Waterman MD [Primary Care Provider] - See instructions Clinical Impressions Clinical Impression: Ear foreign body Print Language Print Language: [place] Verde[place] Discharge ED Provider: Dru Menjivar General Adult HPI General Chief complaint: Ear Stated complaint: Q-tip stuck in left ear Time Seen by Provider: 02/17/25 20:28 Mode of Arrival: Ambulatory Source of Information: Patient Description of Symptoms (Recalled from ER Triage Doc. by RN): Pt has a q-tip st uck in her ear History of Present Illness HPI narrative: Patient is a 69-year-old female who presents today with a foreign body lodged in the external auditory canal of the left ear. She states that it is a cotton component of a Q-tip that she is putting into her ear because of the itching. Has been unable to get it out at home. Related Data Home Medications ?Medication ?Instructions ?Recorded ?Confirmed levetiracetam 750 mg tablet See Rx Instructions PO .COMPLEX 07/02/18 01/14/25 omeprazole 40 mg capsule,delayed 40 mg PO DAILY 07/02/18 01/14/25 release pravastatin 20 mg tablet 20 mg PO DAILY 07/02/18 01/14/25 albuterol sulfate 90 mcg/actuation 1 puff inhalation NEEDED PRN soa 11/08/19 01/14/25 aerosol inhaler montelukast 10 mg tablet 10 mg PO DAILY 01/02/20 01/14/25 lacosamide 150 mg tablet (Vimpat) 150 mg PO BID 10/11/21 01/14/25 mecobalamin (vitamin B12) 1,000 1,000 mcg sublingual HS 02/25/22 01/14/25 mcg disintegrating tablet,sublingual multivitamin 1 tab PO DAILY 02/25/22 01/14/25 lisinopril 20 mg tablet 20 mg PO DAILY 03/02/23 01/14/25 potassium chloride 20 mEq 20 meq PO DAILY 12/22/23 01/14/25 tablet,extended release(part/cryst) hydrochlorothiazide 12.5 mg capsule 12.5 mg PO 06/19/24 01/14/25 hydrocortisone 2.5 % topical cream applic topical 06/26/24 01/14/25 cholecalciferol (vitamin D3) 250 250 mcg PO .twice weekly 07/09/24 01/14/25 mcg (10,000 unit) capsule azelastine 205.5 mcg (0.15 %) 2 spray intranasal BID 10/21/24 01/14/25 nasal spray (Astepro Allergy) fluticasone furoate 200 inhalation 10/21/24 01/14/25 mcg-vilanterol 25 mcg/dose inhalation powder (Breo Ellipta) fluticasone propionate 44 2 puff inhalation BID 10/21/24 01/14/25 mcg/actuation HFA aerosol inhaler glucosam 750 mg-chondroi 100 tab PO 10/21/24 01/14/25 mg-hyalur 1.65 mg-CF borate 108 mg tablet ([facility] [employer]) multivitamin 1 tab PO DAILY 10/21/24 01/14/25 Previous Rx's ?Medication ?Instructions ?Recorded famotidine 20 mg tablet See Rx Instructions .Route 03/12/24 .COMPLEX #180 tabs fezolinetant 45 mg tablet (Veozah) 45 mg PO DAILY #30 tabs 10/09/24 paroxetine HCl 10 mg tablet 10 mg PO DAILY #90.0 tabs 01/09/25 Allergies Allergy/AdvReac Type Severity Reaction Status Date / Time No Known Allergies Allergy Verified 01/14/25 14:02 [facility] Disclaimer: The information contained in this section may have been updated after the patient was seen, as this information can be updated by other users. Medical History Foreign body in right ear, initial encounter Hiatal hernia small sliding type per barium swallow test Itching of ear Migraine Eczema COPD (chronic obstructive pulmonary disease) Lymphadenopathy Chronic fungal laryngitis GERD (gastroesophageal reflux disease) Hoarseness Enlarged tonsils Vasomotor symptoms due to menopause Hormone replacement therapy (HRT) Surgical History History of colonoscopy History of hysterectomy History of bladder surgery Hx of cholecystectomy History of hysterectomy with bilateral oophorectomy Family History Other Cancer Diabetes Social History Smoking Status: Never smoker alcohol intake: never substance use type: denies use current occupational status: retired Travel in the last 8 weeks: None Other Medical History Have you received the Flu Vaccine for this season: Yes Have you received the Pneumonia Vaccine: No ROS Obtained: Yes All systems reviewed & no additional complaints except as documented Physical Exam General General appearance: alert and in no apparent distress ENT ENT exam: Present other (Cotton foreign body noted in the auditory canal of the left ear) Respiratory Respiratory exam: Present normal lung sounds bilaterally Cardiovascular Cardiovascular exam: Present regular rate and normal rhythm Neurological Exam Neurological exam: Present alert and oriented X3 Medical Decision Making Medical Records Screening: Per USPSTF and CDC recommendations, given the prevalence of disease in our region, it is our hospital?s policy to screen for HIV and viral Hepatitis for all patients aged 18 and over and those with ongoing risk factors. Bryant Inquiry Pt receiving controlled substance: No Vital Signs: 02/17/25 20:28 Temperature 98.0 F Temperature Source Oral Pulse Rate [Right] 80 Respiratory Rate 18 Blood Pressure [Right Arm] 136/88 Blood Pressure Mean [Right Arm] 104 Blood Pressure Source [Right Arm] Automatic Cuff Blood Pressure Position [Right Arm] Sitting 02 Sat by Pulse Oximetry 100 Medical Decision Narrative: Patient presents with foreign body in the left external auditory canal which was successfully removed see procedure note was discharged in stable condition. Procedures Foreign Body Removal Site: left and ear Description of foreign body: other (Cotton component of the Q-tip) Sedation/Analgesia: none Technique: manual removal Confirmed by:: direct visualization Complications: none Critical Care Critical Care Time Critical Care Time: No
[2025-02-17 20:50] VITALS: BP 130/72; PULSE 78; RESP 15; TEMP 36.6; O2SAT 98
== END 2025-02-17 20:51 | disposition home or self-care (01) ==
LOC: ER 20:53
PROVIDERS: Emergency Provider Student in an Organized Health Care Education/Training Program; PCP Family Medicine
DX: T16.2XXA Foreign body in left ear, initial encounter (principal); W44.8XXA Other foreign body entering into or through a natural orifice, initial encounter
CPT/HCPCS: 99282

== ENCOUNTER 2025-06-18 08:00 | Outpatient (RCR) | payer MEDICARE, SELFPAY | END 2025-06-18 23:59 | disposition home or self-care (01) | LOC: PT 08:00 | PROVIDERS: PCP Family Medicine; Visit Provider Orthopaedic Surgery | DX: Z47.89 Encounter for other orthopedic aftercare (principal); Z96.651 Presence of right artificial knee joint | CPT/HCPCS: 97016; 97110; 97140 ==

== ENCOUNTER 2025-07-01 10:00 | Outpatient (RCR) | payer MEDICARE, SELFPAY | END 2025-07-01 23:59 | disposition home or self-care (01) | LOC: PT 10:00 | PROVIDERS: PCP Family Medicine; Visit Provider Orthopaedic Surgery | DX: Z47.89 Encounter for other orthopedic aftercare (principal); Z96.651 Presence of right artificial knee joint | CPT/HCPCS: 97110; 97140 ==